=== PATIENT | male | born 1955 | race Caucasian/White ===

== ENCOUNTER 2017-12-27 09:36 | Emergency (ER) | payer MEDICARE ==
[2017-12-27 10:14] VITALS: BP 137/66
--- NOTE | 2017-12-27 10:26 | UC ---
Hip/Pelvis Pain - HPI Summary HPI Summary: The patient is a 62-year-old male with a 5 day history of moderate to severe hip pain. Denies any trauma. He has had no back pain. He denies any bowel or bladder dysfunction. It hurts to bear weight. He is unable to lay on his right side due to increased pain with pressure over the greater trochanter. He has some shooting pain down his lateral right leg to his foot. He has a history of degenerative disc disease in the neck. - History Of Current Complaint Chief Complaint: UCLowerExtremity Stated Complaint: RT HIP PAIN Time Seen by Provider: 12/27/17 10:05 Hx Obtained From: Patient Onset/Duration: Gradual Onset, Lasting Days Timing: Constant Severity Initially: Moderate Severity Currently: Severe Pain Intensity: 7 Pain Scale Used: 0-10 Numeric Location: Discrete At: - right greater troch, Radiates To: - right foot Character Of Pain: Aching, Burning Aggravating Factor(s): Movement, Weight Bearing Alleviating Factor(s): Rest - Allergies/Home Medications Allergies/Adverse Reactions: Allergies Allergy/AdvReac Type Severity Reaction Status Date / Time Sulfa (Sulfonamide Allergy Pain Verified 12/27/17 10:08 Antibiotics) Home Medications: Home Medications Albuterol HFA INHALER* [Ventolin HFA Inhaler*] 1 puff INH Q4H PRN 12/27/17 [ History Confirmed 12/27/17] Ascorbic Acid TAB* [Vitamin C TAB*] 500 mg PO DAILY 12/27/17 [History Confirmed 12/27/17] Aspirin EC TAB* [Ecotrin EC TAB*] 325 mg PO DAILY 12/27/17 [History Confirmed ] Cholecalciferol TAB* [Vitamin D TAB*] 1,000 unit PO DAILY 12/27/17 [History Confirmed 12/27/17] Droxidopa [Northera] 200 mg PO TID 12/27/17 [History Confirmed 12/27/17] Fluticasone/Vilanterol [Breo Ellipta 200-25 Mcg INH] 1 each IH DAILY 12/27/17 [ History Confirmed 12/27/17] Gabapentin CAP(*) [Neurontin 100 mg CAP(*)] 200 mg PO TID 12/27/17 [History Confirmed 12/27/17] Ibuprofen TAB* [Advil TAB*] 1,600 mg PO Q6H PRN 12/27/17 [History Confirmed ] Multivitamins/Minerals TAB* [Theragran/minerals TAB*] 1 tab PO DAILY 12/27/17 [ History Confirmed 12/27/17] PMH/Surg Hx/FS Hx/Imm Hx Previously Healthy: Yes Respiratory History: COPD Other History Of: Hepatitis C - Surgical History Surgical History: Yes Surgery Procedure, Year, and Place: hernia repair. bilateral shoulders. pacemaker - Family History Known Family History: Positive: Hypertension - Social History Alcohol Use: None Substance Use Type: Marijuana Substance Use Comment - Amount & Last Used: daily Smoking Status (MU): Heavy Every Day Tobacco Smoker Type: Cigarettes Amount Used/How Often: 1 PPD Review of Systems Constitutional: Negative Skin: Negative Eyes: Negative ENT: Negative Respiratory: Negative Cardiovascular: Negative Gastrointestinal: Negative Genitourinary: Negative Motor: Negative Neurovascular: Negative Musculoskeletal: Arthralgia Neurological: Negative Psychological: Negative Is Patient Immunocompromised?: No All Other Systems Reviewed And Are Negative: Yes Physical Exam Triage Information Reviewed: Yes Appearance: Well-Appearing, No Pain Distress, Well-Nourished Vital Signs: Initial Vital Signs Temp 98.3 F 12/27/17 10:00 Pulse 60 12/27/17 10:00 Resp 17 12/27/17 10:00 BP 137/66 12/27/17 10:00 Pulse Ox 100 12/27/17 10:00 Vital Signs Reviewed: Yes Eyes: Positive: Conjunctiva Clear ENT: Positive: Hearing grossly normal. Negative: Nasal congestion, Nasal drainage, Trismus, Muffled voice, Hoarse voice Neck: Positive: Supple, Nontender, No Lymphadenopathy Respiratory: Positive: Lungs clear, Normal breath sounds, No respiratory distress, No accessory muscle use Cardiovascular: Positive: RRR, No Murmur Bowel Sounds: Positive: Present Musculoskeletal: Positive: Other: - painful internal rotation right hip, tender greater troch. 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 There is moderate bilateral secondary osteoarthritic change Radiology Interpretation Completed By: Radiologist Hip Injury Course/Dx - Differential Dx/Diagnosis Provider Diagnoses: right greater trochanteric bursitis Discharge - Sign-Out/Discharge Documenting (check all that apply): Patient Departure - Discharge Plan Condition: Stable Disposition: HOME Patient Education Materials: Hip Bursitis (ED) Referrals: Richar Juarez MD [Medical Doctor] - If Needed Conrad Kirk MD [Primary Care Provider] - If Needed Additional Instructions: continue ibuprofen I suspect you have a greater trochanteric bursitis of your right hip you have arthritis of the 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
--- NOTE | 2017-12-27 10:45 | RAD ---
INDICATION: Right hip pain. COMPARISON: There are no prior studies available for comparison. TECHNIQUE: An AP view of the pelvis and frontal and lateral views of the right hip were obtained. 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 There is moderate bilateral secondary osteoarthritic change. No fracture is seen. There is a calcification adjacent to the proximal medial right femoral diaphysis. IMPRESSION: MODERATE BILATERAL OSTEOARTHRITIC CHANGE IN THE HIPS.
== END 2017-12-27 11:09 | disposition home or self-care (01) ==
LOC: UCCORT 09:36
DX: Z88.2 Allergy status to sulfonamides (principal); J44.9 Chronic obstructive pulmonary disease, unspecified; F17.210 Nicotine dependence, cigarettes, uncomplicated; M70.61 Trochanteric bursitis, right hip; Y93.9 Activity, unspecified
CPT/HCPCS: 99211; G0463

== ENCOUNTER 2018-03-09 07:38 | Emergency (ER) | payer MEDICARE ==
[2018-03-09 07:52] VITALS: BP 112/58
[2018-03-09] MEDS ORDERED: Ondansetron ODT TAB* 4 MG PO ONE (08:06)
--- NOTE | 2018-03-09 08:12 | UC ---
Nausea/Vomiting/Diarrhea HPI - HPI Summary HPI Summary: 62-year-old male comes in to clinic today with chief complaint of nausea vomiting fever body aches. This all started about 5 days ago. He has a runny nose sore throat cough and chest congestion. He is a smoker. He's had nausea and vomiting. Started to improve yesterday but this morning the nausea returned and is vomited at least 4 times this morning. He's had normal bowel movements no diarrhea. He has abdominal pain auguste vomiting otherwise he has no abdominal pain. He has been having fevers. His mouth feels dry. - History of Current Complaint Chief Complaint: UCGeneralIllness Stated Complaint: NAUSEA/ACHES Time Seen by Provider: 03/09/18 07:59 Pain Intensity: 6 - Allergies/Home Medications Allergies/Adverse Reactions: Allergies Allergy/AdvReac Type Severity Reaction Status Date / Time Sulfa (Sulfonamide Allergy Pain Verified 03/09/18 07:47 Antibiotics) PMH/Surg Hx/FS Hx/Imm Hx Respiratory History: COPD Other History Of: Hepatitis C - Surgical History Surgical History: Yes Surgery Procedure, Year, and Place: hernia repair. bilateral shoulders. pacemaker - Family History Known Family History: Positive: Hypertension - Social History Alcohol Use: Occasionally Substance Use Type: Marijuana Substance Use Comment - Amount & Last Used: daily Smoking Status (MU): Heavy Every Day Tobacco Smoker Type: Cigarettes Amount Used/How Often: 1 PPD Review of Systems Constitutional: Fever, Chills Skin: Negative Eyes: Negative ENT: Sore Throat, Nasal Discharge, Sinus Congestion Respiratory: Cough Cardiovascular: Negative Gastrointestinal: Abdominal Pain - SEE HPI, Vomiting Neurovascular: Negative Musculoskeletal: Negative Neurological: Negative Psychological: Negative Is Patient Immunocompromised?: No All Other Systems Reviewed And Are Negative: Yes Physical Exam Triage Information Reviewed: Yes Appearance: No Pain Distress, Ill-Appearing - MILD Vital Signs: Initial Vital Signs Temp 100.6 F 03/09/18 07:44 Pulse 74 03/09/18 07:44 Resp 22 03/09/18 07:44 BP 112/58 03/09/18 07:44 Pulse Ox 99 03/09/18 07:44 Vital Signs Reviewed: Yes Eye Exam: Normal Eyes: Positive: Conjunctiva Clear ENT: Positive: Pharyngeal erythema, Nasal congestion, Nasal drainage, TMs normal Neck: Positive: Supple, Nontender Respiratory: Positive: Lungs clear, Normal breath sounds, No respiratory distress Cardiovascular: Positive: RRR Abdomen Description: Positive: Nontender, Soft Bowel Sounds: Positive: Present Musculoskeletal Exam: Normal Musculoskeletal: Positive: Strength Intact, ROM Intact Neurological Exam: Normal Neurological: Positive: Alert, Muscle Tone Normal Psychological Exam: Normal Psychological: Positive: Normal Response To Family, Age Appropriate Behavior Skin Exam: Normal Naus/Vom/Diarrhea Course/Dx - Course Course Of Treatment: Nausea improved in clinic with Zofran. Patient has nasal congestion and chest congestion we'll treat with an antibiotic. Patient will follow up with primary care doctor he will get reevaluated sooner if worse. - Differential Dx/Diagnosis Provider Diagnoses: NAUSEA AND VOMITING. FEBRILE ILLNESS Discharge - Sign-Out/Discharge Documenting (check all that apply): Patient Departure All imaging exams completed and their final reports reviewed: No Studies - Discharge Plan Condition: Stable Disposition: HOME Prescriptions: Amoxicillin/Clavulanate TAB* [Augmentin TAB 875*] 875 mg PO BID #20 tab Ondansetron ODT TAB* [Zofran 4 MG Odt TAB*] 4 mg PO Q6H PRN #10 tab.odt PRN Reason: Nausea Patient Education Materials: Acute Nausea and Vomiting (ED), Dehydration (ED), Fever in Adults (ED) Referrals: Conrad Kirk MD [Primary Care Provider] - Additional Instructions: FOLLOW UP WITH YOUR DOCTOR. GET RECHECKED FOR ANY WORSENING OF YOUR CONDITION OR QUESTIONS OR CONCERNS. - Billing Disposition and Condition Condition: STABLE Disposition: Home
[2018-03-09] MEDS ORDERED: Ibuprofen TAB* 600 MG PO ONE (08:38)
== END 2018-03-09 09:18 | disposition home or self-care (01) ==
LOC: UCCORT 07:38
DX: R11.2 Nausea with vomiting, unspecified (principal); R50.9 Fever, unspecified; R09.81 Nasal congestion; R09.89 Other specified symptoms and signs involving the circulatory and respiratory systems; F17.210 Nicotine dependence, cigarettes, uncomplicated; Z95.0 Presence of cardiac pacemaker; Z88.2 Allergy status to sulfonamides
CPT/HCPCS: 99212; A9270-GY; G0463